=== PATIENT | male | born 1940 | race Caucasian/White ===

== ENCOUNTER 2020-09-27 10:47 | Day surgery (SDC) | payer MEDICARE ==
[2020-09-26 10:10] VITALS: BMI 28.3
[~2020-09-27 10:47] MED LIST: LACTATED RINGERS 1,000 ML IV SCH; LIDOCAINE 1% (10MG/ML) FOR IV START INTRADERMA PRN
[2020-09-27 11:17] VITALS: TEMP 97.8
[2020-09-27] MEDS ORDERED: PROPOFOL 10 MG/ML 20 ML VIAL IV ONE (11:35)
[2020-09-27] MEDS ORDERED: LIDOCAINE 1% INJ 10MG/ML (20 ML MDV) ONE (11:35)
--- NOTE | 2020-09-27 11:53 | P.PCN ---
Date of Procedure: 09/27/20 Procedure(s) Performed: BRIEF HISTORY: Patient is a 80-year-old pleasant male scheduled for an elective colonoscopy as a part of evaluation of prior history of colon polyps. PROCEDURE PERFORMED: Colonoscopy with snare polypectomy. PREOPERATIVE DIAGNOSIS: History of colon polyps. IV sedation per Anesthesia. PROCEDURE: After informed consent was obtained, the patient, was brought into the endoscopy unit. IV sedation was administered by Anesthesia under continuous monitoring. Digital rectal examination was normal. Initially the Olympus CF-160 flexible video colonoscope was then inserted in the rectum, gradually advanced into the cecum without any difficulty. Careful examination was performed as the scope was gradually being withdrawn. Ileocecal valve and the appendiceal orifice were visualized and appeared normal. Prep was excellent. The base of the cecum there was a 3 mm polyp that was removed by snare or biopsy. In the proximal transverse colon there was a 5-6 per limited sessile polyp removed by snare polypectomy. In the descending colon there was a 1 segment of flat polyp remove d by snare polypectomy. In the sigmoid: There was a 3 mm and 5 mm polyps removed by snare polypectomy. There were moderate sigmoid diverticulosis seen. The rectum appeared normal. Retroflexion was performed in the rectum and no lesions were seen. The patient tolerated the procedure well. IMPRESSION: 3 mm cecal polyp status post biopsy 5-6 mm transverse colon polyp status post polypectomy 1 cm flat descending colon polyp status post polypectomy 3 mm and 5 mm sigmoid: Polyp status post polypectomy scattered sigmoid diverticulosis RECOMMENDATIONS: Findings of this examination were discussed with the patient as well as his family. He was advised to follow with the biopsy results. If the biopsy shows an adenoma he can have a repeat colonoscopy in 3 years.
[2020-09-27 11:58] VITALS: RESP 16
[2020-09-27 12:16] VITALS: BP 126/67; PULSE 55
== END 2020-09-27 12:28 | disposition home or self-care (01) ==
LOC: ORWHC2ENDO 10:47
PROVIDERS: ATTEND Internal Medicine Gastroenterology
DX: Z12.11 Encounter for screening for malignant neoplasm of colon (principal); D12.0 Benign neoplasm of cecum; D12.3 Benign neoplasm of transverse colon; D12.4 Benign neoplasm of descending colon; D12.5 Benign neoplasm of sigmoid colon; D12.7 Benign neoplasm of rectosigmoid junction; K57.30 Diverticulosis of large intestine without perforation or abscess without bleeding; K21.9 Gastro-esophageal reflux disease without esophagitis; E78.5 Hyperlipidemia, unspecified; I10 Essential (primary) hypertension; Z86.010 Personal history of colon polyps; Z97.2 Presence of dental prosthetic device (complete) (partial); Z79.899 Other long term (current) drug therapy; Z98.890 Other specified postprocedural states
CPT/HCPCS: 88305; 45385; J2001; J2704; 45380

== ENCOUNTER → 2021-09-28 | Outpatient (CLI) | payer MEDICARE ==
[2021-09-28 17:43] LABS: Basophils # (A) 0.08 X 10*3/uL (0.00-0.10); Basophils % (A) 0.8 %; Eosinophils # (A) 0.86 X 10*3/uL (0.04-0.35); Eosinophils % (A) 8.3 %; HCT 37.3 % (39.6-50.0); HGB 12.4 g/dL (13.0-17.0); Immature Grans, Automated 0.8 %; Lymphocytes % (A) 12.5 %; MCHC 33.2 g/dL (32.0-37.0); MCV 90.1 fL (80.0-97.0); Mean Platelet Volume 10.2 fL (9.5-12.2); Monocytes # (A) 0.86 X 10*3/uL (0.20-1.00); Monocytes % (A) 8.3 %; NRBC Per 100 WBC 0 /100 WBCS (0.0-0.0); Neutrophils # (A) 7.22 X 10*3/uL (1.80-7.70); Neutrophils % (A) 69.3 %; Platelet Count 338 X 10*3/uL (140-440); RBC 4.14 X 10*6/uL (4.40-5.60); RDW 11.9 % (11.5-14.5)
[2021-09-28 18:12] LABS: Albumin 4.7 g/dL (3.8-4.9); Albumin/Globulin Ratio 1.61 (1.60-3.17); Blood Urea Nitrogen 12.7 mg/dL (9.0-27.0); Calcium 9.6 mg/dL (8.7-10.3); Carbon Dioxide 22.5 mmol/L (20.0-27.5); Globulin 2.9 g/dL (1.6-3.3); Magnesium 2.2 mg/dL (1.5-2.4); Non-African American GFR(CKD) 73.3 (60.0-200.0); Potassium 3.9 mmol/L (3.5-5.5); Total Bilirubin 0.6 mg/dL (0.30-1.20); Total Protein 7.7 g/dL (6.2-8.2)
== END | disposition home or self-care (01) ==
LOC: LABWHC1 11:33
PROVIDERS: ATTEND Internal Medicine
DX: G25.81 Restless legs syndrome (principal)
CPT/HCPCS: 36415; 80053; 82607; 83735; 85025

== ENCOUNTER 2024-08-30 09:58 | Day surgery (SDC) | payer MEDICARE ==
[~2024-08-30 09:58] MED LIST changes: +ALPRAZolam 0.25 MG TAB PO PRN; +ALPRAZolam 0.5 MG TAB PO PRN; +HEPARIN SODIUM,PORCINE (1 ML) 2,500 UNIT in SODIUM CHLORIDE 0.9% 250 ML IRRIGATION PRN; +HEPARIN SODIUM,PORCINE 10,000 UNIT in SODIUM CHLORIDE 0.9% 1,000 ML IRRIGATION PRN; -LACTATED RINGERS 1,000 ML IV SCH; -LIDOCAINE 1% (10MG/ML) FOR IV START INTRADERMA PRN; +NITROGLYCERIN SL TABS 0.4 MG TAB SUBLINGUAL PRN
[2024-08-30] MEDS: IV FLUID CONTINUATION 1,000 ML IV ONE (10:47)
[2024-08-30 10:49] VITALS: RESP 16; TEMP 96.8
[2024-08-30] MEDS: ASPIRIN 325 MG TAB PO STA (10:54)
[2024-08-30] MEDS: SODIUM CHLORIDE 0.9% 1,000 ML in EMPTY BAG 1 BAG IV SCH (10:54)
[2024-08-30] MEDS: ATORVASTATIN 80 MG TAB PO STA (10:55)
[2024-08-30] MEDS: MIDAZOLAM 2 MG/2 ML VIAL IVP ONE (11:53)
[2024-08-30] MEDS: fentaNYL (PF) 50 MCG/1 ML VIAL IVP ONE (11:53)
[2024-08-30] MEDS: LIDOCAINE 1% INJ 10MG/ML (30 ML VIAL-PF) SQ ONE (11:59)
[2024-08-30] MEDS: VERAPAMIL SYRINGE (5 MG/10 ML) INTRAARTER ONE (11:59)
[2024-08-30] MEDS: HEPARIN SODIUM 1,000 UN/ML (10ML VL) IVP ONE (12:03)
[2024-08-30] MEDS: IOPAMIDOL-300 100ML BTL INJ ONE (12:24)
[2024-08-30] MEDS ORDERED: RX INFO: IV CONTRAST WAS GIVEN 1 EACH MISC MISCELLANE PRN (13:13)
--- NOTE | 2024-08-30 13:13 | P.CRDCN ---
History of Present Illness Consult date: 08/30/24 History of present illness: DIAGNOSTIC CORONARY ANGIOGRAPHY and LEFT HEART CATH REPORT PROCEDURES PERFORMED: Left heart catheterization Selective coronary angiography Moderate conscious sedation 35 mins Right radial access INDICATION: Abnormal stress test BRIEF HPI: 84-year-old presented to cardiology office because of symptoms of lightheadedness, generalized weakness easy fatigability along with leg cramps. He does have history of PAD. He denies any prior cardiac history. Ex-smoker. He was noticed to be bradycardic with right bundle branch block and therefore his beta-murray dose was reduced. Thereafter patient did report feeling less fatigued and less lightheaded but did not feel back to his baseline from 2 years ago. For this we performed a Lexiscan nuclear stress test which showed reversible perfusion defect in inferior inferolateral wall especially in the RCA territory for which she was scheduled for outpatient heart catheterization. CONSENT: I have explained the procedural steps of above-mentioned procedures in layman's terms to the patient. I discussed the risks (including but not limited to stroke, emergent vascular or cardiac surgery or ), benefits and alternative therapies for the above-mentioned procedure. I discussed the risks of sedation/analgesia and blood product administration (if indicated). The patient has indicated understanding and acceptance of these risks. Conscious Sedation: Patient's ECG, heart rate, blood pressure, pulse oximetry were monitored throughout the duration of procedure under my direct supervision. 1 mg Versed and 50 mcg Fentanyl were used for induction of moderate conscious sedation. Total duration of moderate concious sedation 35 minutes. PROCEDURAL DETAILS: Patient was prepped and draped in sterile fashion. 1% lidocaine was infiltrated over the right radial artery. Right radial access was obtained via modified seldinger technique. . Medications: 5mg of verapamil was administed in the radial sheet. 4500 units of Heparin was administed once the catheter reached the aortic root Wires and Catheter used: J wire was advanced under fluroscopy to get to aortic root. 5 faroese JR 4 diagnostic catheter was utilized obtain left ventricular pressure and pressure gradint across aortic valve. 5 faroese JR 4 diagnostic catheter could not engage right coronary ostium selectively therefore it was exchanged for a 5 Bel[place] JR 5 catheter. It was used to selectively engage the right coronary ostium. 5 faroese JL 3.5 diagnostic catheter was utilized to selectively engage the left coronary ostium. Angiographic images were reviewed in detail. Catheter and wire were removed. Radial sheet was flushed. images were reviewed with Dr. Cedeño. Because of limited contrast dye no intervention was performed and patient was recommended to follow-up outpatient and possibly get surgical opinion. If denied by surgery consider complex PCI of RCA and IFR assessment of LAD The right radial sheath was removed and a TR band was placed. Patent hemostasis was achieved. The patient tolerated the procedure well. Patient was transported back to the post catheterization holding area in stable condition. TECHNICAL DETAILS Total contrast used: Isovue 95 mL Complications: [none] Estimated Blood loss: less than 15 ml HEMODYNAMICS: Aortic Pressure: 150/47 mmHg. LV pressure: 150/5 mmHg. LVEDP 12 mmHg. There was no significant gradient across the aortic valve. SELECTIVE CORONARY ARTERIOGRAPHY: LEFT MAIN: The left main is short and large caliber vessel. It bifurcates into the LAD and circumflex. Left main appears angiographically normal. LEFT ANTERIOR DESCENDING CORONARY ARTERY: LAD is a large caliber vessel which wraps around to the apex. Proximal LAD has mild calcific disease. Mid LAD has 60 to 70% sequential calcific disease. Distal LAD has mild calcific disease. It gives rise to 3 small caliber diagonal branches which is mild diffuse calcific disease. LEFT CIRCUMFLEX CORONARY ARTERY: It is nondominant vessel. LCx has mild nonobstructive diffuse calcified disease. RIGHT CORONARY ARTERY: Dominant vessel. Ostium and proximal RCA is heavily calcified and has 95% disease. Distal part of proximal RCA 70% disease. Proximal part of mid RCA has 70 to 80% calcified disease. Distal part of mid RCA has 90 to 95% calcified diffuse disease. Distal RCA appears patent with mild luminal irregularities. It gives rise to PDA branch. IMPRESSION: 95% ostial proximal RCA calcific stenosis. 95% mid RCA calcific stenosis 60 to 70% mid LAD calcific stenosis Mild diffuse calcific disease Normal LVEDP PLAN: IV fluids 125 cc/h for 4 hours Because of limited contrast dye no intervention was performed and patient was recommended to follow-up outpatient and possibly get surgical opinion. If denied by surgery consider complex PCI of RCA and IFR assessment of LAD Home medication includes aspirin 81 mg, Lipitor 40 mg, HCTZ 25, losartan 100, metoprolol succinate 25 mg daily, amlodipine 10 mg daily. Will continue these medications. Will add Imdur 30 mg daily. Okay to go home in 4 hours. Recommend outpatient follow-up with Dr. Mehta in cardiothoracic surgery consult. Performing Physician Sukumar Mehta MD, [facility], [place] Thank you for allowing [facility] to participate in this patient's care. Feel free to reach out in case of any followup questions. Past Medical History Past Medical History: Cancer, Hyperlipidemia, Hypertension, Osteoarthritis (OA), Vascular Disorder Additional Past Medical History / Comment(s): [place], skin cancer removed, pain to feet due to circulation. hiatal hernia. recent cochlear implant. itching skin at times takes doxepin for it. History of Any Multi-Drug Resistant Organisms: None Reported Past Surgical History: Cholecystectomy Additional Past Surgical History / Comment(s): cyst removed from back,pam cataracts, cochlear implant on rt, left carotid endartectomy. ballon procedure to groin Past Anesthesia/Blood Transfusion Reactions: No Reported Reaction Smoking Status: Former smoker - Past Family History Mother Family Medical History: Myocardial Infarction ([place]) Additional Family Medical History / Comment(s): brain aneurysm Father Family Medical History: Cancer Additional Family Medical History / Comment(s): brain cancer Medications and Allergies Home Medications Medication Instructions Recorded Confirmed Type ALPRAZolam [Xanax] 0.25 mg PO TID 09/26/20 08/26/24 History Losartan Potassium [Cozaar] 100 mg PO QAM 09/26/20 08/30/24 History Omeprazole 10 mg PO BID 09/26/20 08/30/24 History amLODIPine [Norvasc] 10 mg PO QAM 09/26/20 08/30/24 History gemfibroziL [Lopid] 600 mg PO AC-BID 09/26/20 08/30/24 History hydroCHLOROthiazide [Hydrodiuril] 75 mg PO DAILY 09/26/20 08/30/24 History Aspirin EC [Ecotrin Low Dose] 81 mg PO DAILY 08/26/24 08/30/24 History Atorvastatin [Lipitor] 40 mg PO HS 08/26/24 08/30/24 History Doxepin [SINEquan] 25 mg PO HS 08/26/24 08/30/24 History Ibuprofen [Motrin Ib] 400 mg PO DIRECTED PRN 08/26/24 08/26/24 History Metoprolol Succinate (ER) [Toprol 25 mg PO DAILY 08/26/24 08/30/24 History Xl] cilostazoL 100 mg PO BID 08/26/24 08/26/24 History Allergies Allergy/AdvReac Type Severity Reaction Status Date / Time codeine Allergy cant Verified 08/26/24 15:24 remember but did not agree with him Physical Exam Vitals: Vital Signs Temp Pulse Resp BP BP Pulse Ox 08/30/24 10:48 96.8 F L 62 16 186/80 185/77 98 Intake and Output 08/29/24 08/30/24 08/30/24 22:59 06:59 14:59 Intake Total 100 Balance 100 Intake: IV 100 Other: Weight 77.2 kg Results Current Medications Generic Name Dose Route Start Last Admin Trade Name Freq PRN Reason Stop Dose Admin Alprazolam 0.25 mg 08/30/24 05:56 Alprazolam 0.25 Mg Tab PO 09/29/24 05:55 Q6HR PRN Mild Anxiety Alprazolam 0.5 mg 08/30/24 05:56 Alprazolam 0.5 Mg Tab PO 09/29/24 05:55 Q6HR PRN Moderate Anxiety Heparin Sodium (Porcine) 10, 1,001 mls @ 999 mls/hr 08/30/24 05:56 000 unit/ Sodium Chloride IRRIGATION 08/30/24 23:59 ONCE PRN INTRA-OP Heparin Sodium (Porcine) 2,500 250.5 mls @ 250 mls/hr 08/30/24 05:56 unit/ Sodium Chloride IRRIGATION 08/30/24 23:59 ONCE PRN INTRA-OP Sodium Chloride 1,000 ml/ IV 1,000 mls @ 77.111 mls/hr 08/30/24 05:56 08/30/24 10:54 Solution IV 09/29/24 05:55 77.111 mls/hr .[id number] KYLE Administration 1 ML/KG/HR Nitroglycerin 0.4 mg 08/30/24 05:56 Nitroglycerin Sl Tabs 0.4 Mg Tab SUBLINGUAL 09/29/24 05:55 Q5M PRN Chest Pain Intake and Output 08/29/24 08/30/24 08/30/24 22:59 06:59 14:59 Intake Total 100 Balance 100 Intake: IV 100 Other: Weight 77.2 kg Patient Weight 08/31/24 06:59 Weight 77.2 kg
[2024-08-30] MEDS ORDERED: SODIUM CHLORIDE 0.9% 1,000 ML IV SCH (13:15)
[2024-08-30] MEDS ORDERED: ISOSORBIDE MONONITRATE ER 30 MG TAB.ER.24H PO SCH (13:15)
[2024-08-30 15:43] VITALS: BP 158/67; PULSE 51
== END 2024-08-30 16:42 | disposition home or self-care (01) ==
LOC: CATHCVL 09:58
PROVIDERS: ATTEND Student in an Organized Health Care Education/Training Program
DX: I25.10 Atherosclerotic heart disease of native coronary artery without angina pectoris (principal); I45.10 Unspecified right bundle-branch block; R94.39 Abnormal result of other cardiovascular function study; I10 Essential (primary) hypertension; I73.9 Peripheral vascular disease, unspecified; E78.5 Hyperlipidemia, unspecified; Z79.82 Long term (current) use of aspirin; Z79.899 Other long term (current) drug therapy; Z87.891 Personal history of nicotine dependence
CPT/HCPCS: 93458; C1769 ×2; C1894; J2250; J2003; J1644; Q9967; J3010

== ENCOUNTER → 2024-10-07 | Outpatient (CLI) | payer MEDICARE ==
[2024-10-07 15:13] LABS: African American GFR (CKD) 55 (>60 ml/min/1.73 sqM); Blood Urea Nitrogen 22 mg/dL (9-20); Non-African American GFR(CKD) 48 (>60 ml/min/1.73 sqM)
--- NOTE | 2024-10-07 15:43 | CT ---
EXAMINATION TYPE: CT angio chest DATE OF EXAM: 10/07/2024 COMPARISON: None CLINICAL INDICATION: Male, 84 years old with history of I25.10 CAD; PHH, pre-op. CAD. TECHNIQUE: CTA scan of the thorax is performed with IV Contrast, patient injected with 80cc mL of Isovue 370, pu lmonary embolism protocol. MIP images are created and reviewed. CT DLP: [address] CTDI: mGy Automated exposure control for dose reduction was used. FINDINGS: LUNGS: The lungs are grossly clear, there is no concerning parenchymal mass or nodule identified. T here is no pleural effusion or pneumothorax seen. The tracheobronchial tree is patent. MEDIASTINUM: There is satisfactory enhancement of the pulmonary artery and its branches, there is no CT evidence for pulmonary embolism. Main pulmonary artery is mildly prominent measuring 3.3 cm which can be seen with pulmonary hypertension. There are no greater than 1 cm hilar or mediastinal lymph no johanna. No pericardial effusion is seen. There is moderate calcification of the thoracic aorta and brachiocephalic origins but there is no tho racic aortic aneurysm. Limited scanning through the upper abdomen reveals no gross abnormality. There is surgical absence of gallbladder. IMPRESSION: 1. NO ACUTE CARDIOPULMONARY DISEASE. 2. NO EVIDENCE OF PULMONARY EMBOLISM. 3. MODERATE ATHEROSCLEROTIC CALCIFICATION OF THE THORACIC AORTA AND BRACHIOCEPHALIC ORIGINS BUT NO TH ORACIC AORTIC ANEURYSM [facility], , 10/07/2024 3:41 PM
== END | disposition home or self-care (01) ==
LOC: RADCTMAIN 14:17
PROVIDERS: ATTEND Surgery
DX: I25.10 Atherosclerotic heart disease of native coronary artery without angina pectoris (principal); I70.0 Atherosclerosis of aorta
CPT/HCPCS: 82565; 84520; 71275; 36415; Q9967